=== PATIENT | male | born 1995 | race Caucasian/White ===

== ENCOUNTER 2018-07-05 18:21 | Emergency (ER) | payer OTHER, SELFPAY ==
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
[2018-07-05 18:24] VITALS: PULSE 87; RESP 18; TEMP 36.8; O2SAT 98
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
[2018-07-05 18:29] VITALS: BP 125/61
[2018-07-05] MEDS: Ibuprofen 600 MG TAB PO (18:37)
--- NOTE | 2018-07-05 18:37 | NUR.NOTE ---
patient medicated per MD order Nursing Note:
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
== END 2018-07-05 19:29 | disposition home or self-care (01) ==
LOC: ER 19:47
PROVIDERS: Emergency Provider Emergency Medicine
DX: S80.01XA Contusion of right knee, initial encounter (principal); V86.52XA Driver of snowmobile injured in nontraffic accident, initial encounter
CPT/HCPCS: 29505; 73562; 99283; E0114; L1810